=== PATIENT | female | born 1955 | race Caucasian/White ===

== ENCOUNTER 2022-09-27 15:09 | Inpatient (IN) | payer OTHER ==
[~2022-09-27] VITALS: Ht 175.3 cm; Wt 70.2 kg
[2022-09-27 15:59] LABS: BASOPHILS % (AUTO) 0.8 % (0.0-2.0); EOSINOPHILS % (AUTO) 0.3 % (1.0-6.0); HEMATOCRIT 48.3 % (36-46); HEMOGLOBIN 16.2 g/dL (12.0-16.0); LYMPHOCYTES # (AUTO) 2.1 K/uL (1.0-4.8); LYMPHOCYTES % (AUTO) 22.6 % (22.0-44.0); MEAN CORPUSCULAR HEMOGLOBIN 32.3 pg (26.0-34.0); MEAN CORPUSCULAR HGB CONC 33.5 G/dL (31.0-37.0); MEAN CORPUSCULAR VOLUME 96 fL (80-100); MONOCYTES # (AUTO) 0.7 K/uL (0.1-1.0); MONOCYTES % (AUTO) 7.5 % (2.0-9.0); NEUTROPHILS # (AUTO) 6.4 K/uL (1.8-7.7); NEUTROPHILS % (AUTO) 68.8 % (40.0-70.0); PLATELET COUNT (AUTO) 327 K/uL (150-450); RED BLOOD CELL COUNT(AUTO) 5.01 MIL/uL (4.00-5.20)
[2022-09-27 16:08] LABS: ANION GAP 10 mmol/L (8-16); CALCIUM, TOTAL 9.8 mg/dL (8.8-10.5); CARBON DIOXIDE 29 mmol/L (22-29); CHLORIDE 95 mmol/L (98-107); CREATININE 0.54 mg/dL (0.60-1.30); GLOMERULAR FILTR. RATE CALC > 60 mL/min (>60); GLUCOSE,RANDOM 323 mg/dL (70-110); POTASSIUM 3.5 mmol/L (3.5-5.1); SODIUM SERUM 134 mmol/L (136-145)
[2022-09-27 16:12] LABS: PROTHROMBIN TIME 10.4 SEC (9.4-11.6)
[2022-09-27 16:14] LABS: ALANINE AMINOTRANSFERASE 30 U/L (12-78); ALBUMIN 4.5 g/dL (3.4-5.0); ALKALINE PHOSPHATASE 84 U/L (46-116); ASPARTATE AMINOTRANSFERASE 16 U/L (15-37); BILIRUBIN,TOTAL 0.8 mg/dL (0.1-1.0); CREATINE KINASE, TOTAL ONLY 60 U/L (26-192); PHOSPHORUS 3.1 mg/dL (2.5-4.9); TOTAL PROTEIN, SERUM 8.5 g/dL (6.4-8.2)
[2022-09-27 16:15] LABS: B-TYPE NATRIURETIC PEPTIDE 36 pg/mL (0-100)
[2022-09-27] MEDS ORDERED: LABETALOL HCL 5 MG/ML 20 ML VIAL IVP ONE ×2 (16:15→18:30)
[2022-09-27] MEDS ORDERED: SODIUM CHLORIDE 0.9% 1,000 ML IV ONE (16:15)
[2022-09-27 16:57] LABS: APPEARANCE,URINE CLEAR (CLEAR); BILIRUBIN,URINE NEGATIVE (NEGATIVE); GLUCOSE, URINE (UA) >=1000 mg/dL (NEGATIVE); KETONES,URINE 40-60 mg/dL (NEGATIVE); LEUKOCYTE ESTERASE ,URINE NEGATIVE (NEGATIVE); NITRATE,URINE NEGATIVE (NEGATIVE); OCCULT BLOOD,URINE NEGATIVE (NEGATIVE); PH,URINE 6.5 (5.0-8.0); PROTEIN,URINE NEGATIVE (NEGATIVE); SPECIFIC GRAVITIY, URINE 1.016 (1.003-1.030); UROBILINOGEN,URINE <=1.0 mg/dL (<=1.0)
[2022-09-27 17:04] LABS: AMPHET/METH SCREEN,URINE NEGATIVE (NEGATIVE); BARBITURATE SCREEN, URINE NEGATIVE (NEGATIVE); BENZODIAZEPINES SCREEN,URINE NEGATIVE (NEGATIVE); CANNABINOID SCREEN,URINE NEGATIVE (NEGATIVE); COCAINE SCREEN,URINE NEGATIVE (NEGATIVE); METHADONE SCREEN, URINE NEGATIVE (NEGATIVE); OPIATE SCREEN,URINE NEGATIVE (NEGATIVE); PHENCYCLIDINE SCREEN,URINE NEGATIVE (NEGATIVE)
[2022-09-27] MEDS ORDERED: ASPIRIN 325 MG TABLET PO ONE (17:15)
[2022-09-27 17:16] LABS: BACTERIA,URINE None Seen /HPF (None Seen); RBC,URINE None Seen /HPF (0-2); SQUAMOUS EPITHELIAL CELL,UR Moderate /LPF (None Seen)
[2022-09-27 18:16] LABS: COVID AG,FIA SOURCE NASOPHARYNGEAL
[2022-09-27] MEDS ORDERED: NiCARDipine HCL 25 MG in SODIUM CHLORIDE 0.9% 240 ML IV PRN ×2 (18:30→21:44)
[2022-09-27] MEDS ORDERED: ONDANSETRON HCL 4 MG/2 ML VIAL IVP PRN (19:00)
[2022-09-27] MEDS ORDERED: ACETAMINOPHEN 325 MG TABLET PO PRN (19:00)
[2022-09-27] MEDS ORDERED: DEXTROSE 50%-WATER 25 GM/50 ML SYRINGE IVP PRN (19:15)
[2022-09-27] MEDS ORDERED: INSULIN LISPRO 100 UNITS/ML SQ PRN (19:15)
[2022-09-27 21:30] VITALS: BP 166/86
[2022-09-27] MEDS: INSULIN GLARGINE,HUM.REC.ANLOG 100 UNITS/ML SQ SCH (21:39)
[2022-09-27] MEDS: DOCUSATE SODIUM 100 MG CAPSULE PO SCH (21:46)
[2022-09-27] MEDS: NiCARDipine HCL 25 MG in SODIUM CHLORIDE 0.9% 240 ML IV PRN (22:09)
[2022-09-27] MEDS ORDERED: METOPROLOL TARTRATE 25 MG TABLET PO SCH (22:15)
[2022-09-27 23:26] LABS: GLUCOSE,POINT OF CARE 258 MG/DL (70-110)
[2022-09-27] MEDS: HEPARIN SODIUM,PORCINE 5,000 UNITS/ML VIAL SQ SCH (23:55)
[2022-09-28] VITALS: BP 123/65
[2022-09-28] MEDS: NiCARDipine HCL 25 MG in SODIUM CHLORIDE 0.9% 240 ML IV PRN ×4 (00:46→10:41)
[2022-09-28 04:00] VITALS: BP 111/59
[2022-09-28] MEDS ORDERED: FUROSEMIDE 20 MG/2 ML VIAL IVP ONE (05:30)
[2022-09-28] MEDS ORDERED: DEXTROSE 50%-WATER 25 GM/50 ML SYRINGE IVP PRN (05:45)
[2022-09-28 05:58] LABS: ANION GAP 10 mmol/L (8-16); CALCIUM, TOTAL 8.8 mg/dL (8.8-10.5); CARBON DIOXIDE 26 mmol/L (22-29); CHLORIDE 104 mmol/L (98-107); CREATININE 0.43 mg/dL (0.60-1.30); GLOMERULAR FILTR. RATE CALC > 60 mL/min (>60); GLUCOSE,RANDOM 288 mg/dL (70-110); POTASSIUM 3.3 mmol/L (3.5-5.1); SODIUM SERUM 140 mmol/L (136-145)
[2022-09-28 05:58] LABS: BASOPHILS % (AUTO) 0.7 % (0.0-2.0); EOSINOPHILS % (AUTO) 0.6 % (1.0-6.0); HEMATOCRIT 46.3 % (36-46); HEMOGLOBIN 15.7 g/dL (12.0-16.0); LYMPHOCYTES # (AUTO) 2.1 K/uL (1.0-4.8); LYMPHOCYTES % (AUTO) 19.1 % (22.0-44.0); MEAN CORPUSCULAR HEMOGLOBIN 32.3 pg (26.0-34.0); MEAN CORPUSCULAR HGB CONC 33.9 G/dL (31.0-37.0); MEAN CORPUSCULAR VOLUME 95 fL (80-100); MONOCYTES # (AUTO) 0.7 K/uL (0.1-1.0); MONOCYTES % (AUTO) 6.5 % (2.0-9.0); NEUTROPHILS # (AUTO) 7.9 K/uL (1.8-7.7); NEUTROPHILS % (AUTO) 73.1 % (40.0-70.0); PLATELET COUNT (AUTO) 326 K/uL (150-450); RED BLOOD CELL COUNT(AUTO) 4.86 MIL/uL (4.00-5.20)
[2022-09-28] MEDS: INSULIN LISPRO 100 UNITS/ML SQ PRN ×3 (06:05→20:50)
[2022-09-28 06:26] LABS: GLUCOSE,POINT OF CARE 280 MG/DL (70-110)
[2022-09-28] MEDS ORDERED: SODIUM CHLORIDE 0.9% 250 ML IV ONE (07:22)
[2022-09-28] MEDS: POTASSIUM CHL 10 MEQ/WATER 50 ML IV PRN ×2 (07:23→08:48)
[2022-09-28 08:00] VITALS: BP 133/66
[2022-09-28 08:08] LABS: CHOL/HDL RATIO 5.4 (3.9-5.7); CHOLESTEROL 249 mg/dL (131-200); HDL CHOLESTEROL 46 mg/dL (40-60); LDL CHOL (CALC.) 167 mg/dL (0-130); TRIGLYCERIDES 179 mg/dL (15-150)
[2022-09-28] MEDS: ASPIRIN 81 MG CHEWABLE TABLET PO SCH (08:15)
[2022-09-28] MEDS: METOPROLOL TARTRATE 50 MG TABLET PO SCH ×2 (08:15→20:18)
[2022-09-28] MEDS: LOSARTAN POTASSIUM 50 MG TABLET PO SCH (08:15)
[2022-09-28] MEDS: HEPARIN SODIUM,PORCINE 5,000 UNITS/ML VIAL SQ SCH ×3 (08:15→23:33)
[2022-09-28] MEDS: DOCUSATE SODIUM 100 MG CAPSULE PO SCH ×2 (08:15→20:17)
[2022-09-28] MEDS: ATORVASTATIN CALCIUM 40 MG TABLET PO SCH (10:01)
[2022-09-28 12:00] VITALS: BP 142/68
[2022-09-28 12:56] LABS: GLUCOSE,POINT OF CARE 241 MG/DL (70-110)
[2022-09-28 16:00] VITALS: BP 133/68
[2022-09-28] MEDS: HydrALAZINE HCL 20 MG/ML VIAL IVP PRN (17:49)
[2022-09-28] MEDS ORDERED: AmLODIPine BESYLATE 5 MG TABLET ONE (18:31)
[2022-09-28] MEDS: AmLODIPine BESYLATE 5 MG TABLET PO SCH (18:32)
[2022-09-28 19:16] LABS: GLUCOSE,POINT OF CARE 245 MG/DL (70-110)
[2022-09-28 20:22] VITALS: BP 158/80
[2022-09-28] MEDS: INSULIN GLARGINE,HUM.REC.ANLOG 100 UNITS/ML SQ SCH (20:50)
[2022-09-28 21:06] LABS: GLUCOMETER DEV NAME(LOC) 5S.2C; GLUCOSE,POINT OF CARE 352 MG/DL (70-110)
[2022-09-29] VITALS (8 sets, daily range): BP systolic 119–181; BP diastolic 65–97
[2022-09-29 05:31] LABS: GLUCOMETER DEV NAME(LOC) 5N.2C; GLUCOSE,POINT OF CARE 242 MG/DL (70-110)
[2022-09-29] MEDS: INSULIN LISPRO 100 UNITS/ML SQ PRN ×4 (06:00→20:55)
[2022-09-29 06:45] LABS: BASOPHILS % (AUTO) 0.7 % (0.0-2.0); EOSINOPHILS % (AUTO) 1.3 % (1.0-6.0); HEMATOCRIT 44.2 % (36-46); HEMOGLOBIN 15.3 g/dL (12.0-16.0); LYMPHOCYTES # (AUTO) 2.3 K/uL (1.0-4.8); LYMPHOCYTES % (AUTO) 28.2 % (22.0-44.0); MEAN CORPUSCULAR HEMOGLOBIN 33.3 pg (26.0-34.0); MEAN CORPUSCULAR HGB CONC 34.7 G/dL (31.0-37.0); MEAN CORPUSCULAR VOLUME 96 fL (80-100); MONOCYTES # (AUTO) 0.7 K/uL (0.1-1.0); MONOCYTES % (AUTO) 8.7 % (2.0-9.0); NEUTROPHILS % (AUTO) 61.1 % (40.0-70.0); PLATELET COUNT (AUTO) 320 K/uL (150-450); RED CELL DISTRIBUTION WIDTH 11.8 % (11.5-14.5)
[2022-09-29 07:38] LABS: ALANINE AMINOTRANSFERASE 23 U/L (12-78); ALBUMIN 3.3 g/dL (3.4-5.0); ALKALINE PHOSPHATASE 62 U/L (46-116); ANION GAP 12 mmol/L (8-16); ASPARTATE AMINOTRANSFERASE 18 U/L (15-37); BILIRUBIN,TOTAL 0.7 mg/dL (0.1-1.0); CALCIUM, TOTAL 9.3 mg/dL (8.8-10.5); CARBON DIOXIDE 24 mmol/L (22-29); CHLORIDE 103 mmol/L (98-107); CREATININE 0.43 mg/dL (0.60-1.30); GLOMERULAR FILTR. RATE CALC > 60 mL/min (>60); GLUCOSE,RANDOM 241 mg/dL (70-110); SODIUM SERUM 139 mmol/L (136-145); TOTAL PROTEIN, SERUM 6.6 g/dL (6.4-8.2)
[2022-09-29 07:41] LABS: POTASSIUM 2.8 mmol/L (3.5-5.1)
[2022-09-29] MEDS: ASPIRIN 81 MG CHEWABLE TABLET PO SCH (08:03)
[2022-09-29] MEDS: ATORVASTATIN CALCIUM 40 MG TABLET PO SCH (08:03)
[2022-09-29] MEDS: METOPROLOL TARTRATE 50 MG TABLET PO SCH ×2 (08:04→20:54)
[2022-09-29] MEDS: LOSARTAN POTASSIUM 50 MG TABLET PO SCH (08:04)
[2022-09-29] MEDS: HEPARIN SODIUM,PORCINE 5,000 UNITS/ML VIAL SQ SCH ×2 (08:04→17:40)
[2022-09-29] MEDS: DOCUSATE SODIUM 100 MG CAPSULE PO SCH ×2 (08:04→20:54)
[2022-09-29] MEDS: AmLODIPine BESYLATE 5 MG TABLET PO SCH ×2 (08:04→20:54)
[2022-09-29] MEDS ORDERED: SODIUM CHLORIDE 0.9% 250 ML IV ONE (08:19)
[2022-09-29] MEDS ORDERED: POTASSIUM CHLORIDE 20 MEQ ER TABLET PO ONE (08:30)
[2022-09-29] MEDS: POTASSIUM CHL 10 MEQ/WATER 50 ML IV PRN ×4 (08:38→18:57)
[2022-09-29 19:46] LABS: GLUCOMETER DEV NAME(LOC) 5S.2C; GLUCOSE,POINT OF CARE 227 MG/DL (70-110)
[2022-09-29] MEDS: INSULIN GLARGINE,HUM.REC.ANLOG 100 UNITS/ML SQ SCH (20:54)
[2022-09-29 21:26] LABS: GLUCOMETER DEV NAME(LOC) 5N.2C; GLUCOSE,POINT OF CARE 223 MG/DL (70-110)
[2022-09-29 21:26] LABS: GLUCOMETER DEV NAME(LOC) 5N.1C; GLUCOSE,POINT OF CARE 289 MG/DL (70-110)
[2022-09-29] MEDS ORDERED: SODIUM CHLORIDE 0.9% 0 ML ONE (22:33)
[2022-09-29] MEDS ORDERED: SODIUM CHLORIDE 0.9% 100 ML ONE (22:40)
[2022-09-29] MEDS ORDERED: IOHEXOL 350 MG/ML 100 ML VIAL ONE (22:40)
[2022-09-30] MEDS: HEPARIN SODIUM,PORCINE 5,000 UNITS/ML VIAL SQ SCH ×3 (00:11→16:23)
[2022-09-30] MEDS: HydrALAZINE HCL 20 MG/ML VIAL IVP PRN (00:14)
[2022-09-30 05:09] VITALS: BP 136/90
[2022-09-30] MEDS: INSULIN LISPRO 100 UNITS/ML SQ PRN ×4 (05:43→20:29)
[2022-09-30 06:21] LABS: GLUCOMETER DEV NAME(LOC) 5S.2C; GLUCOSE,POINT OF CARE 252 MG/DL (70-110)
[2022-09-30 06:37] LABS: BASOPHILS % (AUTO) 0.4 % (0.0-2.0); EOSINOPHILS % (AUTO) 0.9 % (1.0-6.0); HEMATOCRIT 45.8 % (36-46); HEMOGLOBIN 15.7 g/dL (12.0-16.0); LYMPHOCYTES # (AUTO) 2.2 K/uL (1.0-4.8); LYMPHOCYTES % (AUTO) 32.6 % (22.0-44.0); MEAN CORPUSCULAR HEMOGLOBIN 32.9 pg (26.0-34.0); MEAN CORPUSCULAR HGB CONC 34.3 G/dL (31.0-37.0); MEAN CORPUSCULAR VOLUME 96 fL (80-100); MONOCYTES # (AUTO) 0.8 K/uL (0.1-1.0); MONOCYTES % (AUTO) 11.9 % (2.0-9.0); NEUTROPHILS # (AUTO) 3.7 K/uL (1.8-7.7); NEUTROPHILS % (AUTO) 54.2 % (40.0-70.0); PLATELET COUNT (AUTO) 312 K/uL (150-450); RED BLOOD CELL COUNT(AUTO) 4.77 MIL/uL (4.00-5.20); RED CELL DISTRIBUTION WIDTH 11.9 % (11.5-14.5)
[2022-09-30 07:28] LABS: ANION GAP 10 mmol/L (8-16); CALCIUM, TOTAL 9.8 mg/dL (8.8-10.5); CARBON DIOXIDE 26 mmol/L (22-29); CHLORIDE 106 mmol/L (98-107); CREATININE 0.59 mg/dL (0.60-1.30); GLOMERULAR FILTR. RATE CALC > 60 mL/min (>60); GLUCOSE,RANDOM 264 mg/dL (70-110); POTASSIUM 4.4 mmol/L (3.5-5.1); SODIUM SERUM 142 mmol/L (136-145)
[2022-09-30 07:30] VITALS: BP 134/91
[2022-09-30] MEDS: METOPROLOL TARTRATE 50 MG TABLET PO SCH ×2 (08:06→20:28)
[2022-09-30] MEDS: AmLODIPine BESYLATE 5 MG TABLET PO SCH ×2 (08:06→20:28)
[2022-09-30] MEDS: DOCUSATE SODIUM 100 MG CAPSULE PO SCH (08:06)
[2022-09-30] MEDS: ASPIRIN 81 MG CHEWABLE TABLET PO SCH (08:06)
[2022-09-30] MEDS ORDERED: LOSARTAN POTASSIUM 50 MG TABLET PO SCH (09:00)
[2022-09-30] MEDS ORDERED: ATORVASTATIN CALCIUM 40 MG TABLET PO SCH (09:00)
[2022-09-30] MEDS ORDERED: CLOPIDOGREL BISULFATE 75 MG TABLET PO SCH (09:00)
[2022-09-30] MEDS ORDERED: SODIUM CHLORIDE 0.9% 100 ML ONE (09:39)
[2022-09-30] MEDS ORDERED: IOHEXOL 350 MG/ML 100 ML VIAL ONE (09:39)
[2022-09-30 11:30] VITALS: BP 131/89
[2022-09-30 15:11] LABS: GLUCOMETER DEV NAME(LOC) 5N.1C; GLUCOSE,POINT OF CARE 227 MG/DL (70-110)
[2022-09-30 16:33] VITALS: BP 149/87
[2022-09-30 18:52] LABS: GLUCOMETER DEV NAME(LOC) 5N.1C; GLUCOSE,POINT OF CARE 210 MG/DL (70-110)
[2022-09-30 20:30] VITALS: BP 159/66
[2022-09-30] MEDS: INSULIN GLARGINE,HUM.REC.ANLOG 100 UNITS/ML SQ SCH (20:30)
[2022-09-30 20:41] LABS: GLUCOMETER DEV NAME(LOC) 5N.1C; GLUCOSE,POINT OF CARE 304 MG/DL (70-110)
== END 2022-09-30 20:35 | disposition short-term general hospital (02) | DRG 304 ==
LOC: EMS 15:12 → EDBD 15:12 → ICU 20:08 → 5S 09-28 18:50
PROVIDERS: ADMIT Internal Medicine; ATTEND Internal Medicine
DX: I16.1 Hypertensive emergency (principal); I63.512 Cerebral infarction due to unspecified occlusion or stenosis of left middle cerebral artery; E87.1 Hypo-osmolality and hyponatremia; Z20.822 Contact with and (suspected) exposure to COVID-19; E78.5 Hyperlipidemia, unspecified; F10.10 Alcohol abuse, uncomplicated; E87.6 Hypokalemia; R29.810 Facial weakness; R29.702 NIHSS score 2; F17.210 Nicotine dependence, cigarettes, uncomplicated; R03.0 Elevated blood-pressure reading, without diagnosis of hypertension; R47.1 Dysarthria and anarthria; E11.65 Type 2 diabetes mellitus with hyperglycemia
CPT/HCPCS: 70450; 70496; 70498; 70544; 70551; 71045; 80048; 80053; 80061; 80307; 81001; 82550; 82962; 83036; 83735; 83880; 84100; 84484; 85025; 85610; 85651; 85730; 86140; 87081; 92507; 92610; 93005; 93306; 93880; 97116; 97163; 97166; 97530; 97535; 99291; G0378; G0480; J0360; J1644; J1815; J1940; J3480; J3490; J7030; J7050; Q9967; 36415-L1; 36415-TC